=== PATIENT | male | born 1960 | race African-American/Black ===

== ENCOUNTER 2017-12-09 06:28 | Day surgery (SDC) | payer MEDICARE ==
[2017-12-06 12:05] LABS: ANION GAP 6.4 mmol/L (8-16); CALCIUM 8.6 mg/dL (8.5-10.1); CARBON DIOXIDE 32.4 mmol/L (21.0-32.0); CREATININE - SERUM 1.2 mg/dL (0.6-1.3); POTASSIUM - SERUM 3.8 mmol/L (3.5-5.1)
[2017-12-06 12:56] LABS: MCH 28.2 pg (26.0-34.0); MCHC 32.6 g/dL (31.0-37.0); MCV 86.7 fL (80.0-100.0); MEAN PLATELET VOLUME 12.2 fL (7.4-10.4); RBC 4.96 10x6/uL (4.20-6.10); RDW 14.1 % (11.5-14.5); WBC 3.5 10x3/uL (4.8-10.8)
[~2017-12-09] VITALS: Ht 180.3 cm; Wt 85.3 kg
[~2017-12-09 06:28] MED LIST: K-TAB10 MEQ PO; TOPAMAX25 MG PO
[2017-12-09 07:04] VITALS: BP 103/69; Ht 180.3 cm; Wt 85.3 kg
[2017-12-09] MEDS ORDERED: HYDROCODON-ACE1 EAC7 PO (09:26)
[2017-12-09] MEDS ORDERED: FLOMAX0.4 MG PO (09:28)
[2017-12-09] MEDS ORDERED: FUROSEMIDE20 MG PO (09:28)
== END 2017-12-09 18:30 | disposition home or self-care (01) ==
LOC: D.OPS 06:28 → D.PAN 08:00 → D.OPS 18:30
PROVIDERS: Anesthesiology
DX: K40.20 Bilateral inguinal hernia, without obstruction or gangrene, not specified as recurrent (principal)